=== PATIENT | male | born 1965 | race Caucasian/White ===

== ENCOUNTER 2021-05-26 19:14 | Emergency (ER) | payer MEDICARE, MEDICAID, SELFPAY ==
--- NOTE | ~2021-05-26 | CT_ITS ---
EXAMINATION: CT HUMERUS WITHOUT CONTRAST, RIGHT CLINICAL INFORMATION: Fall. Question of a fracture. Question hematoma. COMPARISON: None TECHNIQUE: Multidetector volumetric imaging was obtained through the right humerus without contrast. Multiplanar reformatted images in coronal and sagittal orientations were submitted. This CT examination was performed using dose optimization techniques as appropriate, variously including the following: *Automated exposure control *Adjustment of mA and/or kV according to patient size (this includes techniques or standardized protocols for targeted exams where dose is matched to indication/reason for exam; i.e. extremities or head) *Use of iterative reconstruction technique DLP: 1313 mGy-cm FINDINGS: No acute fracture or malalignment at the right humerus. Bones are osteopenic. Mild glenohumeral osteoarthritis with nonuniform joint space narrowing and marginal osteophytes. Multiple old healed right-sided rib fractures are noted. No acute rib fractures are identified. No appreciable fractures are identified at the right elbow. Elbow joint appears relatively well-preserved. No appreciable elbow joint effusion. There is a dense (55 Hounsfield units) collection in the lateral subcutaneous fat at the level of the distal humerus measuring 6 x 3.5 x 5 cm. There is fat stranding throughout the subcutaneous soft tissues of the upper arm and elbow. Musculature is grossly unremarkable. Sensitivity for acute muscle injury is limited on this unenhanced CT . No appreciable glenohumeral joint effusion. Imaged portion of the right lung is clear. Tips shunt is noted. There is gynecomastia. Nodular hepatic contour is consistent with cirrhosis. CT/CT humerus RT wo con IMPRESSION: No acute fracture at the right humerus. A 6 cm subcutaneous hematoma in the lateral soft tissues at the distal humerus.
--- NOTE | ~2021-05-26 | CT_ITS ---
EXAMINATION: HEAD CT WITHOUT CONTRAST CERVICAL SPINE CT WITHOUT CONTRAST CLINICAL INFORMATION: Fall couple days ago. COMPARISON: 05/20/2020 TECHNIQUE: Contiguous axial imaging of the head was performed without the administration of IV contrast. Axial multidetector volumetric images were also performed through the cervical spine without intravenous contrast. Multiplanar reconstructed images in coronal and sagittal orientations were submitted. This CT examination was performed using dose optimization techniques as appropriate, variously including the following: *Automated exposure control *Adjustment of mA and/or kV according to patient size (this includes techniques or standardized protocols for targeted exams where dose is matched to indication/reason for exam; i.e. extremities or head) *Use of iterative reconstruction technique DOSE: 1313 mGy-cm FINDINGS: HEAD: There is no evidence of acute intracranial hemorrhage or territorial infarction. No abnormal mass-effect or midline shift. No extra-axial fluid collections. Rico to white matter differentiation is well preserved. Moderate enlargement of the ventricles, sulci, and extra-axial CSF spaces is indicative of parenchymal volume loss. A few foci of hypoattenuation in the subcortical and periventricular white matter are most consistent with chronic microangiopathic changes. Globes are aphakic. No fractures are identified at the calvarium, skull base, and imaged facial bones. No acute soft tissue findings. A cystic focus is present in the subcutaneous fat at the scalp adjacent to the external occipital protuberance in the midline, possibly an epidermal inclusion cyst. The sinuses and mastoid air cells are clear. CERVICAL SPINE: Vertebral body heights are normal. No fractures of the vertebral bodies or posterior elements. Vertebral alignment is normal. No subluxation. The craniocervical and atlantoaxial articulations are normal. Intervertebral discs are narrowed at multiple levels with associated endplate and uncovertebral osteophytes, most notably from C3-C4 through C6-C7. Facet joints are normal. Posterior disc osteophyte complexes produce multilevel central canal stenoses, at least moderate in severity at multiple levels including C3-C4 and C5-C6. Uncovertebral osteophytes produce multilevel neural foraminal encroachment, most notably at C3-C4. No significant paravertebral soft tissue swelling. Atherosclerotic calcifications are present in the carotid arteries. Imaged portions of the lung apices are clear. CT/CT cervical spine wo con IMPRESSION: 1. No acute intracranial pathology. 2. No acute fracture or malalignment in the cervical spine. Multilevel degenerative spondylosis in the cervical spine.
[2021-05-26 19:31] VITALS: BP 135/69; PULSE 84; RESP 16; TEMP 36.7; O2SAT 100; BMI 24.2
--- NOTE | 2021-05-26 19:43 | ED.EXTPRO ---
HPI - Extremity Problem General Chief complaint: Extremity Injury, Upper Stated complaint: RIGHT UPPER ARM INJURY Time Seen by Provider: 05/26/21 20:48 Source: patient Mode of arrival: ambulatory Limitations: no limitations History of Present Illness HPI Narrative: Patient presents to the ED for right humerus elbow pain. Patient fell on the 9th of this month while drinking and fell onto his right upper extremity. Patient states since then pain and area that isblack and blue. Complaint: extremity pain Related Data Allergies Allergy/AdvReac Type Severity Reaction Status Date / Time Penicillins [PENICILLINS] Allergy Severe ANAPHYLAXIS Unverified 07/31/20 17:04 penicillin V Allergy Unknown unsure Verified 04/30/15 00:00 Review of Systems Review of Systems: Yes all other systems are reviewed and are negative Constitutional: Constitutional: Reports as per HPI and Reports no additional constitutional complaints Eyes: Eyes: Reports as per HPI and Reports no additional eye complaints ENT: Reports system reviewed and no additional complaints, except as documented and Reports as per HPI Cardiovascular: Cardiovascular: Reports as per HPI and Reports no additional cardiovascular complaints Respiratory: Respiratory: Reports as per HPI and Reports no additional respiratory complaints Gastrointestinal: Gastrointestinal: Reports as per HPI and Reports no additional gastrointestinal complaints Genitourinary: Genitourinary: Reports no additional male genitourinary complaints and Reports as per HPI Musculoskeletal: Musculoskeletal: Reports no additional musculoskeletal complaints and Reports as per HPI Comments: My upper extremity pain Neurologic: Reports system reviewed and no additional complaints, except as documented and Reports as per HPI Psychiatric: Psychiatric: Reports no additional psychiatric complaints and Reports as per HPI [facility] Past Medical History Medical History (Updated 05/27/21 @ 00:01 by Amarilis Yi) CHF (congestive heart failure) COPD (chronic obstructive pulmonary disease) Social History Social History Advance Directives: No Advance Directives Information Provided: Yes Physical Exam Vital Signs: Vital Signs: Last Vital Signs Temp 98.0 F 05/26/21 19:31 Pulse 92 05/26/21 22:13 Resp 18 05/26/21 22:13 BP 124/68 05/26/21 22:13 Pulse Ox 97 05/26/21 22:34 Body Mass Index 24.2 Const: General: cooperative, healthy appearing, comfortable and no acute distress Orientation/consciousness: patient oriented x3 HENMT: Head: Yes normal to inspection, Yes No palpable skull fracture present, Yes normocephalic, Yes atraumatic and No abrasion Eyes: General: appearance normal, both eyes and all related structures Neck: Neck: Yes normal visual inspection, Yes full ROM, Yes no lymphadenopathy, Yes no meningeal signs, Yes trachea midline, Yes supple and No tender Chest: Chest palpation & inspection: normal inspection of the chest and normal palpation of entire chest wall Resp: Effort & Inspection: normal respiratory effort and able to speak in complete sentences Auscultation: clear to auscultation bilaterally Cardio: Jugular venous distension: no JVD Heart sounds: S1 normal heart sound present and S2 normal heart sound present GI: Inspection: Yes normal to inspection and No abdominal wall ecchymosis Palpation (GI): Soft to palpation, not firm, nontender, no guarding and not rigid : General: No CVA tenderness and Yes no CVA tenderness Back/Spine/Pelvis: Back: no CVA tenderness, No CVA tenderness and No back tenderness Skin: General skin exam: no rashes or lesions noted and elasticity normal Neuro: General: patient oriented x3, gait normal, no meningeal signs and CN's II-XI intact bilaterally Cranial nerves: Yes CN's II-XII intact bilaterally Extrem: Other: Shoulder/upper arm images: 1. Significant area of ecchymosis, swelling, hard mass on lower aspect of femurs. Positive elbow tenderness and ecchymosis. Upper extremity indicates hematoma. Motor and neuro exam is intact. Vascular exam is intact. Negative for signs of compartment syndrome Psych: Appearance: grossly normal, well kempt and not disheveled Course Course Course Narrative: Patient will be sent for CT of her upper extremity to evaluate for fracture and hematoma. Reevaluation(s) Reevaluation #1: Images negative for any fractures. CT scan shows hematoma. Patient states up-to-date with tetanus. Patient in follow-up with outpatient surgery. Patient is safe for discharge. Time: 22:32 MDM - Extremity (Nontraumatic) MDM Narrative Medical decision making narrative: Contusion hematoma Discharge Plan Discharge Clinical Impression: Hematoma and contusion Patient Disposition: Home, Self-Care Instructions: Contusion in Adults (ED), Hematoma (ED) Additional Instructions: Return to the ED immediately for worsening pain, headache, nausea, vomiting, fever, chills, chest pain, shortness of breath, abdominal pain, rectal bleeding, bloody urine or any other concerning symptom. Referrals: Varghese Summers MD [Physician] - 2 days (Humerus hematoma no fracture) Interventions: ED Discharge Assessment Last Done: 05/26/21 23:24 Discharge Date/Time: 05/26/21 23:25 Print Language: Guamanian
[2021-05-26 22:13] VITALS: BP 124/68; PULSE 92; RESP 18; O2SAT 88
[2021-05-26 22:34] VITALS: O2SAT 97
[2021-05-26] MEDS: Acetaminophen 325 MG TABLET 650 MG PO (23:06)
== END 2021-05-26 23:25 | disposition home or self-care (01) ==
PROVIDERS: Emergency Provider Emergency Medicine; PCP Student in an Organized Health Care Education/Training Program
DX: S50.01XA Contusion of right elbow, initial encounter (principal); W19.XXXA Unspecified fall, initial encounter; Y93.9 Activity, unspecified; Y92.9 Unspecified place or not applicable; Y99.9 Unspecified external cause status
CPT/HCPCS: 70450; 72125; 73200; 99284

== ENCOUNTER 2021-07-28 14:04 | Emergency (ER) | payer MEDICARE, MEDICAID, SELFPAY ==
--- NOTE | ~2021-07-28 | XR_ITS ---
EXAMINATION: RIGHT SHOULDER AND CLAVICLE X-RAYS CLINICAL INFORMATION: Pain. Fall. COMPARISON: Right humerus CT May 2021 TECHNIQUE: One view of the clavicle. 2 views of the right shoulder. FINDINGS: Right clavicle: There is a new minimally displaced acute fracture of the right distal clavicle. Right shoulder: There is an acute minimally displaced fracture of the right distal clavicle. No other fracture is seen. Glenohumeral alignment is normal. There is arthritis at the acromioclavicular joint. Soft tissues are unremarkable. XR/XR clavicle RT IMPRESSION: Acute minimally displaced fracture of the right distal clavicle.
--- NOTE | ~2021-07-28 | XR_ITS ---
EXAMINATION: RIGHT SHOULDER AND CLAVICLE X-RAYS CLINICAL INFORMATION: Pain. Fall. COMPARISON: Right humerus CT May 2021 TECHNIQUE: One view of the clavicle. 2 views of the right shoulder. FINDINGS: Right clavicle: There is a new minimally displaced acute fracture of the right distal clavicle. Right shoulder: There is an acute minimally displaced fracture of the right distal clavicle. No other fracture is seen. Glenohumeral alignment is normal. There is arthritis at the acromioclavicular joint. Soft tissues are unremarkable. XR/XR shoulder RT min 2V IMPRESSION: Acute minimally displaced fracture of the right distal clavicle.
--- NOTE | ~2021-07-28 | CT_ITS ---
EXAMINATION: CT CERVICAL SPINE WITHOUT CONTRAST CLINICAL INFORMATION: Fall. Head injury. COMPARISON: Previous cervical spine CT May 2020 TECHNIQUE: Axial images through the cervical spine This CT examination was performed using dose optimization techniques as appropriate, variously including the following: *Automated exposure control *Adjustment of mA and/or kV according to patient size (this includes techniques or standardized protocols for targeted exams where dose is matched to indication/reason for exam; i.e. extremities or head) *Use of iterative reconstruction technique DLP: 485 mGy-cm FINDINGS: Bone alignment is normal. No fracture or dislocation is seen. There is multilevel degenerative spondylosis and degenerative disc disease from C3-C4 to C6-C7. Prevertebral soft tissues are normal. There is bilateral carotid calcification. CT/CT cervical spine wo con IMPRESSION: Degenerative changes. No fracture or dislocation seen.
--- NOTE | ~2021-07-28 | CT_ITS ---
EXAMINATION: CT CHEST WITHOUT CONTRAST CLINICAL INFORMATION: Fall. Question rib fractures. COMPARISON: None TECHNIQUE: Multidetector volumetric CT imaging of the chest was done. Axial MIP volume rendering provided. Sagittal and coronal reformatted images were obtained. This CT examination was performed using dose optimization techniques as appropriate, variously including the following: *Automated exposure control *Adjustment of mA and/or kV according to patient size (this includes techniques or standardized protocols for targeted exams where dose is matched to indication/reason for exam; i.e. extremities or head) *Use of iterative reconstruction technique DLP: 352 mGy-cm FINDINGS: LUNGS: The lungs are clear with no evidence of inflammation or nodules. MEDIASTINUM: The heart does not appear enlarged. There is coronary artery calcification. The thoracic aorta is upper normal in size. There is no pericardial effusion. There are no enlarged hilar or mediastinal lymph nodes. PLEURA: There is no pleural effusion. No pleural mass or thickening. AXILLA: There are subcutaneous low-attenuation soft tissue masses in the chest overlying the sternum. This may represent sebaceous cysts. No other chest wall mass is seen. There are no enlarged axillary lymph nodes. UPPER ABDOMEN: There is a TIPS shunt seen in the liver. There is a calcification in the spleen. OSSEOUS STRUCTURES: There are old right lateral rib fractures. No acute rib fracture is seen. CT/CT chest wo con IMPRESSION: No evidence for acute disease in the chest. Old right lateral rib fractures. No acute rib fracture is seen. TIPS shunt in the liver.
--- NOTE | ~2021-07-28 | CT_ITS ---
EXAMINATION: CT HEAD WITHOUT CONTRAST CLINICAL INFORMATION: Fall. Head injury. COMPARISON: Previous head CT most recent May 2020 TECHNIQUE: Contiguous axial imaging was performed from the skull base to vertex without intravenous administration of contrast. This CT examination was performed using dose optimization techniques as appropriate, variously including the following: *Automated exposure control *Adjustment of mA and/or kV according to patient size (this includes techniques or standardized protocols for targeted exams where dose is matched to indication/reason for exam; i.e. extremities or head) *Use of iterative reconstruction technique DLP: 730 mGy-cm FINDINGS: There is no evidence of an extra-axial collection. There is no evidence of intra-axial or extra-axial hemorrhage. The ventricles and extra-axial CSF spaces are prominent for the patient's age suggestive of mild generalized atrophy. There is mild nonspecific periventricular white matter disease. No mass, mass effect or infarct is seen. Review at bone windows is normal. No skull fracture is seen. Visualized mastoid air cells, middle ears and paranasal sinuses are clear. CT/CT head/brain wo con IMPRESSION: No acute findings. Mild generalized atrophy and nonspecific periventricular white matter disease.
[2021-07-28 14:28] VITALS: BP 137/75; PULSE 91; RESP 16; TEMP 36.6; O2SAT 98; BMI 28.1
--- NOTE | 2021-07-28 15:07 | ED_ITS ---
HPI - Fall General Chief Complaint: Extremity Injury, Upper Stated Complaint: FALL R SHOULDER INJ Time Seen by Provider: 07/28/21 14:43 Source: patient Mode of arrival: ambulatory Limitations: no limitations History of Present Illness HPI Narrative: 55-year-old male presenting to the ED with complaints of right shoulder/clavicle pain after he had a mechanical fall where he fell out of bed a few days ago he is unsure exactly when onto his right shoulder/clavicle he also hit his head although he denies loss of consciousness and since then he has been having pain to the parietal aspect of his skull and right shoulder/clavicle pain. He denies any symptoms prior to the fall. He denies prolonged down time. He reports only pain after the fall no other symptoms after the fall. He reports he has bad equilibrium and has multiple falls at home. He has a nurse at home. He denies being on any blood thinners. He denies any other injuries complaints concerns or injuries at this time. MD complaint: fall Onset (ago): day(s) (Few days ago he is unsure exactly when) Fall from: out of bed Fall witnessed: no Place fall occurred: home Loss of consciousness: none Prolonged down time: no Symptoms prior to fall: none Context: history of frequent falls Location of injury: head Location of injury - extremities: right: shoulder (Shoulder and clavicle) Severity: moderate Quality: aching Associated symptoms (after fall): denies Related Data Previous Rx's Medication Instructions Recorded acetaminophen 500 mg tablet 1,000 mg PO QID PRN #14 tab 07/28/21 (Tylenol Extra Strength) tramadol 50 mg tablet 50 mg PO BID PRN #14 tab 07/28/21 Allergies Allergy/AdvReac Type Severity Reaction Status Date / Time Penicillins [PENICILLINS] Allergy Severe ANAPHYLAXIS Unverified 07/31/20 17:04 penicillin V Allergy Unknown unsure Verified 04/30/15 00:00 Review of Systems Review of Systems: Constitutional : No Fever, No Chills ENT/Mouth : No Ear Pain, No Hoarseness, No sore throat Eyes: No Eye Pain, No Swelling, No Redness, No Foreign Body Cardiovascular : No Chest Pain, No SOB Respiratory : No Cough, No Dyspnea Gastrointestinal : No Nausea, No Vomiting, No Diarrhea, No abdominal Pain Genitourinary : No Dysuria, No Hematuria Musculoskeletal : Positive right shoulder/clavicle pain, No joint pain, No Myalgias, No Joint Swelling Skin : No Skin lacerations, No rash Neuro : Positive head injury, No Weakness, No Numbness, No Paresthesias, No Loss of Consciousness, No Dizziness, No Headache Psych : No Anxiety/Panic, No Depression Heme/Lymph: no easy bruising, no Lymphadenopathy Endocrine : No Polyuria, No Polydipsia Yes all other systems are reviewed and are negative [facility] Past Medical History Attestation statement: The following information was validated with the patient. Medical History CHF (congestive heart failure) COPD (chronic obstructive pulmonary disease) Social History Social History Advance Directives: Yes Advance Directives Information Provided: No Advance Directives on File: No Physical Exam Vital Signs: Vital Signs: Last Vital Signs Temp 97.0 F 07/28/21 16:00 Pulse 74 07/28/21 16:00 Resp 18 07/28/21 16:14 BP 135/74 07/28/21 16:00 Pulse Ox 99 07/28/21 16:00 Body Mass Index 28.1 vital signs have been reviewed as normal and appeared to be correct. Blood pressure normal. Heart rate normal. Respiration rate normal. Temperature normal. Oxygen saturation normal. Appearance: Alert. Oriented X3. No acute distress. Head: Patient mild tenderness palpation to right posterior parietal area with ecchymosis and abrasion noted. No obvious deformities or depressions noted on my exam. Otherwise the rest of the external exam is within normal limits. No Cheung signs noted. No raccoon eyes noted Eyes: PERRLA. EOMI. Conjunctiva and sclera normal. Eyelids normal. ENT: EAC normal. TM's Normal. No septal hematoma noted. No hemotympanum noted. Pharynx normal. Uvula midline. Moist mucous membranes. No trismus noted. No drooling noted. No muffled voice noted. Neck: Normal inspection. Neck supple. FROM. No adenopathy. Thyroid Normal. No meningeal signs. No neck mass noted. Nontender. CVS: Normal heart rate and rhythm. Heart sound normal. Pulses normal throughout. No murmurs/rales/gallops. Respiratory: No respiratory distress. Painless inspiration. Breath sounds normal. No wheezes/rales/rhonchi noted. No accessory muscle usage noted or decreased air movement noted. Patient has moderate ecchymosis to the anterior upper right chest wall with mild tenderness all patient although reports that it is more at his clavicle. Not consistent with flail chest. No crepitus is noted. No obvious deformities noted. No obvious depressions noted. No signs of infection. Abdomen: Soft and nontender. Bowel sounds normal in all 4 quadrants. No distention noted. No organomegaly noted. No visible injury noted. Back: Full range of motion noted. Nontender. No rashes/lesion/induration/fluctuance or signs of infection noted. Skin: Skin warm and dry. Normal skin color. Normal skin turgor. No rashes/lesions/lacerations noted. Extremities: Patient with tenderness palpation to right at the AC joint although more tenderness all patient to the distal aspect of the right clavicle with ecchymosis noted. No depression or obvious deformities are noted. No signs of infection. Otherwise all other Extremities exhibit normal range of motion and nontender. Neuro: Oriented X 3. No motor deficit. No sensory deficit. Reflexes normal. Normal steady gait. No focal neuro deficits noted. Vascular: + radial pulses. Normal cap refill. No cyanosis noted to upper extremity nails Course Course Course Narrative: 15pm - 55-year-old male who has a history of frequent falls and has the nurse that comes daily presenting to the ED with complaints of right shoulder/clavicle pain after he had a mechanical fall where he fell out of bed. He reports that this is common for him due to he has bad equilibrium. He reports he did hit his head but did not lose consciousness. No prolonged down time. He is not on any blood thinners. No symptoms prior to the fall. Only pain after the fall. On exam patient has mild soft tissue swelling and tenderness palpation to right parietal area. No depressions or signs of infection or obvious deformities noted. Patient with tenderness palpation to right shoulder/clavicle joint. Patient has limited range of motion to the right shoulder joint due to pain. He is noted to have ecchymosis to the right shoulder/clavicle and anterior upper chest wall. He also has tenderness palpation to right upper chest wall. No crepitus or obvious deformities/depression signs of infection noted. Not consistent with flail chest. Therefore CT scan of brain/cervical spine/CT scan of chest, x-ray of right clavicle and right shoulder ordered at this time along with 50 mg of tramadol will re-evaluate. Reevaluation(s) Reevaluation #1: - CT scan of brain/cervical spine/chest revealed chronic changes no acute processes. Patient was noted to have a right clavicle fracture. No fractures to right shoulder. Will DC home with sling and orthopedic referral instructions return if any new or worsening symptoms to follow up with primary care provider. Patient understands agrees with this plan. Time: 17:26 Procedures Orthopedic Splinting/Casting Injury #1: Side: right Upper Extremity Injury Location: clavicle and shoulder Upper Extremity Immobilizer: sling/shoulder immobilizer MDM - Fall Medical Records Attestation: I reviewed the patient's medical records. Imaging Data Right shoulder/clavicle x-ray: Attestation: I personally reviewed and interpreted this imaging study as follows: Radiologist's impression: FINDINGS: Right clavicle: There is a new minimally displaced acute fracture of the right distal clavicle. Right shoulder: There is an acute minimally displaced fracture of the right distal clavicle. No other fracture is seen. Glenohumeral alignment is normal. There is arthritis at the acromioclavicular joint. Soft tissues are unremarkable. XR/XR clavicle RT IMPRESSION: Acute minimally displaced fracture of the right distal clavicle.? CT scan of brain/cervical spine/chest without contrast: Attestation: I personally reviewed and interpreted this imaging study as follows: Radiologist's impression: FINDINGS: There is no evidence of an extra-axial collection. There is no evidence of intra-axial or extra-axial hemorrhage. The ventricles and extra-axial CSF spaces are prominent for the patient's age suggestive of mild generalized atrophy. There is mild nonspecific periventricular white matter disease. No mass, mass effect or infarct is seen. Review at bone windows is normal. No skull fracture is seen. Visualized mastoid air cells, middle ears and paranasal sinuses are clear. CT/CT head/brain wo con IMPRESSION: No acute findings. Mild generalized atrophy and nonspecific periventricular white matter disease. FINDINGS: Bone alignment is normal. No fracture or dislocation is seen. There is multilevel degenerative spondylosis and degenerative disc disease from C3-C4 to C6-C7. Prevertebral soft tissues are normal. There is bilateral carotid calcification. CT/CT cervical spine wo con IMPRESSION: Degenerative changes. No fracture or dislocation seen.? ? FINDINGS: LUNGS: The lungs are clear with no evidence of inflammation or nodules. ? MEDIASTINUM: The heart does not appear enlarged. There is coronary artery calcification. The thoracic aorta is upper normal in size. There is no pericardial effusion. There are no enlarged hilar or mediastinal lymph nodes.? PLEURA: There is no pleural effusion. No pleural mass or thickening.? AXILLA: There are subcutaneous low-attenuation soft tissue masses in the chest overlying the sternum. This may represent sebaceous cysts. No other chest wall mass is seen. There are no enlarged axillary lymph nodes.? UPPER ABDOMEN: There is a TIPS shunt seen in the liver. There is a calcification in the spleen.? OSSEOUS STRUCTURES: There are old right lateral rib fractures. No acute rib fracture is seen. CT/CT chest wo con IMPRESSION: No evidence for acute disease in the chest. Old right lateral rib fractures. No acute rib fracture is seen. TIPS shunt in the liver. Discharge Plan Discharge Clinical Impression: Fall, Fracture of right clavicle, Sprain of right shoulder, Head injury, Ecchymosis Patient Disposition: Home, Self-Care Instructions: Clavicle Fracture (ED), How to Use a Sling (ED), Fall Prevention for Older Adults (ED), Head Injury (ED), Shoulder Sprain (ED), Ecchymosis (ED) Prescriptions: New tramadol 50 mg tablet 50 mg PO BID PRN (Reason: pain) Qty: 14 RF: 0 acetaminophen [Tylenol Extra Strength] 500 mg tablet 1,000 mg PO QID PRN (Reason: fever or pain) Qty: 14 RF: 0 Referrals: Valdo Gonzalez MD [Physician] - 2 days (Call tomorrow to make a follow-up appointment within the next 1-2 weeks) Juany Hanson MD [Primary Care Provider] - 2 days Print Language: Israeli
[2021-07-28] MEDS: traMADoL HCL 50 MG TABLET PO (15:14)
[2021-07-28 16:00] VITALS: BP 135/74; PULSE 74; RESP 15; TEMP 36.1; O2SAT 99
[2021-07-28 16:14] VITALS: RESP 18
--- NOTE | 2021-07-28 17:25 | PC.NURSE ---
PATIENT WAS ASSISTED TO THE BATHROOM BY THIS PCT
== END 2021-07-28 17:37 | disposition home or self-care (01) ==
PROVIDERS: Emergency Provider Internal Medicine; PCP Student in an Organized Health Care Education/Training Program
DX: S42.001A Fracture of unspecified part of right clavicle, initial encounter for closed fracture (principal); S43.401A Unspecified sprain of right shoulder joint, initial encounter; S40.021A Contusion of right upper arm, initial encounter; M25.511 Pain in right shoulder; G44.309 Post-traumatic headache, unspecified, not intractable; M54.2 Cervicalgia; W06.XXXA Fall from bed, initial encounter; Y93.9 Activity, unspecified; Y92.009 Unspecified place in unspecified non-institutional (private) residence as the place of occurrence of the external cause; Y99.9 Unspecified external cause status; Z79.899 Other long term (current) drug therapy; Z91.81 History of falling
CPT/HCPCS: 70450; 71250; 72125; 73000; 73030; 99284

== ENCOUNTER 2021-08-07 08:15 | Outpatient (REF) | payer MEDICARE, MEDICAID, SELFPAY | END 2021-08-07 08:16 | disposition home or self-care (01) | LOC: HO.HOSX 08:15 | PROVIDERS: Visit Provider Physician Assistant | DX: Z13.89 Encounter for screening for other disorder (principal) ==